=== PATIENT | female | born 1980 | race Caucasian/White ===

== ENCOUNTER 2018-10-18 08:03 | Outpatient (CLI) | payer BC ==
--- NOTE | 2018-10-18 08:51 | RAD ---
F6 views of the lumbar spine: 10/18/2018 COMPARISON: None HISTORY: Lumbar disc degeneration FINDINGS: Bilateral oblique views, frontal view, and lateral views with neutral, flexion, and extensi on positioning provided. Lumbar pedicles are intact on frontal imaging. No anterolisthesis or retrolisthesis is noted on the l ateral flexion, extension, or neutral views. No acute fracture or evidence of dislocation is seen. Ob lique imaging demonstrates no discrete pars defect on either side at any level. IMPRESSION: No acute findings.
--- NOTE | 2018-10-18 09:28 | MRI ---
FLumbar spine MRI without contrast: 10/18/2018 COMPARISON: None HISTORY: Chronic back pain TECHNIQUE: Multiplanar multisequence MR imaging of the lumbar spine obtained without contrast. FINDINGS: On the basis of 5 lumbar type vertebral bodies, conus medullaris terminates at the T12 leve l. Sagittal STIR imaging demonstrates no focal area of osseous marrow edema. T12-L1: Intervertebral disc height and signal intensity within normal limits with no significant cent ral canal or neural foraminal stenosis. L1-2: Intervertebral disc height and signal intensity within normal limits with no significant centra l canal or neural foraminal stenosis. L2-3: Intervertebral disc height and signal intensity within normal limits with no significant centra l canal or neural foraminal stenosis. L3-4: Intervertebral disc height and signal intensity within normal limits with no significant centra l canal or neural foraminal stenosis. L4-5: Mild disc space narrowing and minimal disc bulge with no significant central canal stenosis. Mi ld bilateral facet hypertrophy. No significant central canal or neural foraminal stenosis. L5-S1: Disc space narrowing and disc desiccation noted with mild disc bulge and a central annular tea r. Mild associated central canal stenosis. No significant neural foraminal stenosis. Benign hemangioma incidentally noted at the L4 vertebral level. The imaged retroperitoneal structures demonstrate no acute findings. IMPRESSION: Lower lumbar spine degenerative changes as detailed above.
== END 2018-10-18 08:04 | disposition home or self-care (01) ==
LOC: TBSIIMAG 08:03
PROVIDERS: ATTEND Neurological Surgery
DX: M51.36 Other intervertebral disc degeneration, lumbar region (principal); M47.816 Spondylosis without myelopathy or radiculopathy, lumbar region
CPT/HCPCS: 72110; 72148

== ENCOUNTER 2019-01-22 08:35 | Outpatient (CLI) | payer BC ==
[2019-01-22 10:04] LABS: Hemoglobin 14.3 g/dL (12.0-16.0); Mean Corpuscular HGB CONC 32.8 g/dL (32.0-36.0); Mean Corpuscular Hemoglobin 30.7 pg (27.0-31.0); Mean Corpuscular Volume 93.7 fL (78.0-98.0); Mean Platelet Volume 8.8 fL (7.4-10.4); Platelet Count 194 thou/uL (130-400); RBC Distribution Width 11.6 % (11.5-14.5); Red Blood Cell (RBC) Count 4.66 mill/uL (4.20-5.40); White Blood Cell (WBC) Count 5.6 thou/uL (4.8-10.8)
[2019-01-22 10:10] LABS: BHCG - Serum Negative (NEGATIVE); Pregs Control Background? CLEAR/WHITE (CLR/WHITE); Pregs Control Bar Appear? YES (CONTROL BAR)
[2019-01-22 10:28] LABS: Anion Gap 10 mmol/L (10-20); BUN (Urea Nitrogen) 11 mg/dL (7.0-18.7); Calc. Creatinine Clearance 0 mL/min (70-130); Calcium 8.9 mg/dL (7.8-10.44); Carbon Dioxide 25 mmol/L (22-29); Chloride 106 mmol/L (98-107); Estimated GFR-MDRD 72; Glucose 78 mg/dL (70-105); Potassium 4.2 mmol/L (3.5-5.1); Sodium 137 mmol/L (136-145)
== END 2019-01-22 08:36 | disposition home or self-care (01) ==
LOC: LABBT 08:35
PROVIDERS: ATTEND Neurological Surgery
DX: Z01.818 Encounter for other preprocedural examination (principal); M54.16 Radiculopathy, lumbar region
CPT/HCPCS: 80048; 84703; 85027; 93005; 93010

== ENCOUNTER 2019-01-27 06:01 | Day surgery (SDC) | payer BC ==
[2019-01-22 08:57] VITALS: BMI 23.0
[2019-01-27] MEDS ORDERED: Sodium Chloride 0.9% 10 ML ONE (06:38)
[2019-01-27] MEDS ORDERED: Fentanyl 100 MCG/2 ML VIAL ONE ×3 (06:45→09:17)
[2019-01-27] MEDS ORDERED: Midazolam HCl 2 mg/2 ml Vial ONE ×2 (06:45→07:04)
[2019-01-27] MEDS ORDERED: Scopolamine 1.5 mg/72 hour Patch ONE (06:56)
[2019-01-27] MEDS ORDERED: Ketorolac Tromethamine 30 MG/ML VIAL ONE (08:50)
[2019-01-27] MEDS ORDERED: Dexamethasone 20 MG/5 ML VIAL ONE (11:27)
[2019-01-27] MEDS ORDERED: Lidocaine 1% PF 5 ML VIAL ONE (11:27)
[2019-01-27] MEDS ORDERED: PROPOFOL 200 MG/20 ML VIAL ONE (11:27)
[2019-01-27] MEDS ORDERED: Ondansetron PF 4 MG/2 ML Vial ONE (11:27)
[2019-01-27] MEDS ORDERED: ePHEDrine 50 MG/ML VIAL ONE (11:27)
[2019-01-27] MEDS ORDERED: Glycopyrrolate 0.2 MG/ML 5 ML SYRINGE ONE (11:27)
[2019-01-27] MEDS ORDERED: Rocuronium Bromide 10 MG/ML (10ML VIAL) ONE (11:27)
[2019-01-27] MEDS ORDERED: Acetaminophen/Codeine 30-300mg Tablet ONE (12:16)
--- NOTE | 2019-01-27 14:39 | OP ---
DATE OF PROCEDURE: 01/27/2019 DIRECTOR EDUCATIONAL RADIO: Jazmyne Ritter PA-C PROCEDURE PERFORMED: Right L5-S1 laminectomy, facetectomy, foraminotomy, interbody arthrodesis, intervertebral biomechanical device, local morselized autograft, demineralized bone matrix, posterolateral arthrodesis, pedicle screw instrumentation, L5-S1. DESCRIPTION OF PROCEDURE: The patient was brought to the operating room and intubated. She was rolled in the prone position on gel-filled chest rolls. An incision was made exposing L5 and S1 bilaterally and the level was confirmed by x-ray. We performed right-sided L5-S1 laminectomy, facetectomy, foraminotomy and completely decompressed the neural elements. The disk was incised and debrided and the bony endplates decorticated for the purpose of arthrodesis. An appropriate-sized intervertebral biomechanical PEEK device was brought into the field, filled with demineralized bone matrix and local morselized autograft, and tapped in place securely at L5-S1. Next, pedicle screws were placed at right L5 and right S1 using lateral fluoroscopic guidance and positioning was confirmed by x-ray. The steffen was secured between the screws, connected by nuts, which were final tightened. The wound was then extensively irrigated and MAC hemostasis was secured. A combination of demineralized bone matrix and local morselized autograft was laid over the left lamina and posterolateral surfaces for the purpose of arthrodesis. Vancomycin powder was applied and the wound was then closed in anatomic layers. Job ID: [id number]
== END 2019-01-27 12:36 | disposition home or self-care (01) ==
LOC: SDC 06:01
PROVIDERS: ATTEND Neurological Surgery
PROC: 0SG30AJ Fusion of Lumbosacral Joint with Interbody Fusion Device, Posterior Approach, Anterior Column, Open Approach (ICD-10-PCS; principal; 2019-01-27)
DX: M51.17 Intervertebral disc disorders with radiculopathy, lumbosacral region (principal); Z91.040 Latex allergy status; Z88.5 Allergy status to narcotic agent
CPT/HCPCS: 76000; C1713; C1768; J0690; J1100; J1885; J2001; J2250; J2405; J2704; J3010; J3370; J3490

== ENCOUNTER 2019-02-11 09:32 | Outpatient (CLI) | payer BC ==
--- NOTE | 2019-02-11 09:59 | RAD ---
EXAM: XR Lumbar Spine 2 Or 3 View DATE: 02/11/2019 12:00 AM INDICATION: Postop lumbar spine COMPARISON: Lumbar spinal radiograph dated October 18, 2018 FINDING: Since the comparison examination there is been placement of right-sided pedicular screws at L5 and S1 with interconnecting steffen. There is an intervertebral body cage seen at L5-S1. Spinal alignment is within normal limits. The instrumentation projects in expected position. No acute fractu re is evident. IMPRESSION:Postoperative lumbar spine
== END 2019-02-11 09:33 | disposition home or self-care (01) ==
LOC: TBSIIMAG 09:32
PROVIDERS: ATTEND Neurological Surgery
DX: M54.16 Radiculopathy, lumbar region (principal); Z98.890 Other specified postprocedural states
CPT/HCPCS: 72100

== ENCOUNTER 2019-04-03 16:09 | Outpatient (CLI) | payer BC ==
--- NOTE | 2019-04-03 17:06 | RAD ---
LUMBAR SPINE TWO VIEWS: 04/03/19 COMPARISON: 02/11/19. HISTORY: Lumbar disc degeneration. Status post fusion. FINDINGS: Five lumbar type vertebral bodies. Stable straightening of the normal lumbar lordosis. Redemonstratio n of a unilateral right sided transpedicular screw at L5 and S1. No perihardware lucency. Stable disc prosthesis. IMPRESSION: Uncomplicated lumbar fusion. No significant interval change. POS: [facility]
== END 2019-04-03 16:10 | disposition home or self-care (01) ==
LOC: TBSIIMAG 16:09
PROVIDERS: ATTEND Neurological Surgery
DX: M51.36 Other intervertebral disc degeneration, lumbar region (principal); Z98.1 Arthrodesis status
CPT/HCPCS: 72100